=== PATIENT | female | born 1965 | race Caucasian/White ===

== ENCOUNTER 2020-02-17 07:54 | Day surgery (SDC) | payer OTHER ==
[2020-02-17] MEDS ORDERED: ACETAMINOPHEN 325 MG TABLET PO ONE (08:23)
--- NOTE | 2020-02-17 09:32 | RADIOLOGY REPORT (SQ) ---
EXAM DESCRIPTION: SHOULDER RIGHT 2 OR MORE VIEWS IMAGES COMPLETED DATE/TIME: 02/17/2020 9:23 am REASON FOR STUDY: fall, pain. COMPARISON: None. NUMBER OF VIEWS: Three views. TECHNIQUE: Internal rotation, external rotation, and Y view images acquired of the right shoulder. LIMITATIONS: None. FINDINGS: MINERALIZATION: Normal. BONES: No acute fracture. No worrisome bone lesions. JOINTS: Anterior, inferior glenohumeral dislocation. VISUALIZED LUNGS AND RIBS: No pneumothorax. No rib fracture. SOFT TISSUES: No radiopaque foreign body. OTHER: No other significant finding. IMPRESSION: Anterior, inferior glenohumeral dislocation. TECHNICAL DOCUMENTATION: JOB ID: [id number] 2010 [employer]- All Rights Reserved Reading location - IP/workstation name: [email or web address]
--- NOTE | 2020-02-17 10:22 | ER Document Report ---
ED General - General Chief Complaint: Shoulder Pain Stated Complaint: FALL/SHOULDER PAIN Primary Care Provider: ALLI CASTAÑEDA FNP-C [Primary Care Provider] - Follow up as needed Information source: Patient, Relative Notes: Patient is a 54-year-old female presenting to the emergency department chief complaint of accidental fall resulting in right shoulder pain. Patient states that she was at work and got tangled with some shrink wrap and tripped and fell landing on her right shoulder. Patient denies chest pain shortness of breath capitation's or any other complaint prior to the fall. Patient is complaining of pain to the right shoulder otherwise no other abnormal findings at this time. TRAVEL OUTSIDE OF THE [place] IN LAST 30 DAYS: No - HPI Onset: Just prior to arrival Onset/Duration: Sudden Quality of pain: Throbbing Severity: Moderate Pain Level: 3 Associated symptoms: None Exacerbated by: Movement Relieved by: Denies Similar symptoms previously: No Recently seen / treated by doctor: No - Related Data Allergies/Adverse Reactions: No Known Allergies Allergy (Verified 02/17/20 08:26) Past Medical History - General Information source: Patient - Social History Smoking Status: Unknown if Ever Smoked Chew tobacco use (# tins/day): No Frequency of alcohol use: None Drug Abuse: None Lives with: Spouse/Significant other Family History: Reviewed & Not Pertinent Patient has suicidal ideation: No Patient has homicidal ideation: No Review of Systems - Review of Systems Notes: REVIEW OF SYSTEMS: CONSTITUTIONAL : Denies fever, chills, or sweats. Denies recent illness. EENT: Denies eye, ear, throat, or mouth pain or symptoms. Denies nasal or sinus congestion. CARDIOVASCULAR: Denies chest pain. RESPIRATORY: Denies cough, cold, or chest congestion. Denies shortness of breath, difficulty breathing, or wheezing. GASTROINTESTINAL: Denies abdominal pain. Denies nausea, vomiting, or diarrhea. Denies constipation. GENITOURINARY: Denies difficulty urinating, painful urination, burning, frequency, or blood in urine. MUSCULOSKELETAL: Per HPI SKIN: Denies rash or skin lesions. HEMATOLOGIC : Denies easy bruising or bleeding. NEUROLOGICAL: Denies altered mental status or loss of consciousness. Denies headache. Denies weakness or paralysis or loss of use of either side. Denies problems with gait or speech. Denies sensory or motor loss. PSYCHIATRIC: Denies suicidal or homicidal ideations 10 Systems are negative unless otherwise specified above Physical Exam - Vital signs Vitals: Temp Pulse Resp BP Pulse Ox 98.0 F 112 H 16 156/70 H 100 02/17/20 08:01 02/17/20 08:01 02/17/20 08:01 02/17/20 08:01 02/17/20 08:01 - Notes Notes: PHYSICAL EXAMINATION: GENERAL: Well-appearing, well-nourished and in no acute distress. HEAD: Atraumatic, normocephalic. EYES: Pupils equal round and reactive to light, extraocular movements intact, sclera anicteric, conjunctiva are normal. ENT: nares patent, oropharynx clear without exudates. Moist mucous membranes. NECK: Normal range of motion, supple without lymphadenopathy, no appreciable JVD LUNGS: Lungs clear to auscultation bilaterally and equal. No wheezes rales or rhonchi. HEART: Regular rate and rhythm without murmurs ABDOMEN: Soft, nontender, normal bowel sounds. No guarding, no rebound. No masses appreciated. EXTREMITIES: Active full range of motion x3,2+ pulses x4, limitation is right shoulder demonstrates obvious deformity. Patient does have good range of motion distally and sensation is present distally capillary refill less than 3 seconds. NEUROLOGICAL: No focal neurological deficits. Moves all extremities spontaneously and on command. SKIN: Warm, Dry, and intact. Normal turgor, no rashes or lesions noted. Course - Re-evaluation Re-evalutation: 02/17/20 10:44 I did discuss with the patient and her the need for conscious sedation and relocation of her dislocation I did discuss all possible complications and she is agreeable with the procedure. 02/17/20 12:52 Multiple attempts (2) to reduce the patient's shoulder dislocation were unsuccessful. I spoke with Dr. Hendrickson, orthopedics seed cone picker and he agrees to take the patient to the OR for general anesthesia and reduction of her right- sided shoulder dislocation. Patient and are aware of the change and are agreeable with same. - Vital Signs Vital signs: Temp Pulse Resp BP Pulse Ox 98.0 F 89 18 129/71 H 100 02/17/20 08:01 02/17/20 11:00 02/17/20 12:01 02/17/20 12:00 02/17/20 12:01 Procedures - Conscious Sedation Conscious sedation Time started: 11:07 Time completed: 11:13 Consent obtained: Yes Prior complications: Procedural sedation Pt with a mild systemic disease.: P2. - ASA Classification. Airway Evaluation: Normal anatomy, Large tongue Mallampati Classification: Class 3 Used during procedure: Suction available, IV access obtained, Pulse ox on pt., surveillance system monitor on pt. Medications administered: Diprivan Reversal agents: None I personally performed/intraservice time: Sedation Complications: No Notes: Repeat procedure was performed times as follows [id number] - Joint Reduction/Fracture Care Right Shoulder Time completed: 11:43 Consent obtained: Yes Conscious sedation: Yes Pre-procedure NV exam: Yes Post-procedure NV exam: Yes Post-reduction x-ray: Joint not reduced Reduction attempts: 2 Complications: No Discharge - Discharge Clinical Impression: Shoulder dislocation Qualifiers: Encounter type: initial encounter Laterality: right Qualified Code(s): S43.004A - Unspecified dislocation of right shoulder joint, initial encounter Condition: Stable Disposition: SAME DAY SURGERY Admitting Provider: Emeka Referrals: ALLI CASTAÑEDA DIESEL MACHINIST-C [Primary Care Provider] - Follow up as needed
[2020-02-17] MEDS ORDERED: NORMAL SALINE 1000 ML 1,000 ML IV ONE (10:45)
[2020-02-17] MEDS ORDERED: PROPOFOL INJ 200 MG/20 ML VIAL IV ONE ×4 (10:46→14:40)
[2020-02-17] MEDS ORDERED: MORPHINE SULFATE 10 MG/ML INJ IV ONE ×2 (10:46→13:28)
[2020-02-17] MEDS ORDERED: ONDANSETRON HCL INJ/PF 4 MG/2 ML SDV IV ONE (10:47)
--- NOTE | 2020-02-17 13:02 | RADIOLOGY REPORT (SQ) ---
EXAM DESCRIPTION: SHOULDER RIGHT 2 OR MORE VIEWS IMAGES COMPLETED DATE/TIME: 02/17/2020 12:17 pm REASON FOR STUDY: post dislocation COMPARISON: Earlier the same day. NUMBER OF VIEWS: Two views. TECHNIQUE: AP images acquired of the right shoulder at 1100 hours and 1200 hours. LIMITATIONS: None. FINDINGS: No change in anterior glenohumeral dislocation. IMPRESSION: No change. TECHNICAL DOCUMENTATION: JOB ID: [id number] 2010 [employer]- All Rights Reserved Reading location - IP/workstation name: [email or web address]
[2020-02-17] MEDS ORDERED: KETAMINE HCL INJ 500 MG/10 ML VIAL ONE (14:39)
[2020-02-17] MEDS ORDERED: FENTANYL CITRATE INJ/PF 100 MCG/2 ML AMPUL ONE (14:39)
--- NOTE | 2020-02-17 14:53 | PDOC H&P ---
History of Present Illness Admission Date/PCP: NELSON DUKES Patient complains of: Right shoulder anterior dislocation History of Present Illness: GALI MONTEMAYOR is a 54 year old female employed at [employer]. 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 She presented to the emergency room at [facility] complaining of right shoulder pain. Imaging demonstrated an anterior shoulder dislocation. 2 separate reduction attempts were performed in the emergency department. These attempts were unsuccessful. Past Medical History Cardiac Medical History: Reports: Hyperlipidema, Hypertension Pulmonary Medical History: Denies: None, Asthma, Bronchitis, Chronic Obstructive Pulmonary Disease (COPD), Intubation, Pneumonia, Respiratory Failure, Sleep Apnea, Tuberculosis, Other EENT Medical History: Denies: None, Cataracts, Eyes, Ears, Nose, Throat, Other Neurological Medical History: Denies: None, Hemorrhagic CVA, Ischemic CVA, Migraine, Multiple Sclerosis, Seizures, Other Endocrine Medical History: Reports: Diabetes Mellitus Type 2 Renal/ Medical History: Denies: None, Chronic Kidney Disease, End Stage Renal Disease, Nephrolithiasis, Other Malignancy Medical History: Denies: None, Bone Cancer, Brain Cancer, Breast Cancer, Cervical Cancer, Colorectal Cancer, Leukemia, Liver Cancer, Lung Cancer, Lymphoma, Ovarian Cancer, Pancreatic Cancer, Renal (Kidney) Cancer, Skin Cancer, Other Psychiatric Medical History: Denies: None, Alcohol Dependency, Attention Deficit Hyperactivity Disorder, Bipolar Disorder, Dementia, Depression, General Anxiety Disorder, Personality Disorder, Post Traumatic Stress Disorder, Schizoaffective Disorder, Substance Abuse, Tobacco Dependency, Other Hematology: Denies: None, Anemia, Hemophilia, Sickle Cell Disease, Bleeding Tendencies, Heparin Induced Thrombocytopenia, Neutropenia, Other Infectious Medical History: Denies: None, Clostridium Difficile, Hepatitis B, Hepatitis C, HIV, Methicillin-Resistant Staph Aureus, Vancomycin-Resistant Enterococci, Other Past Surgical History Past Surgical History: Reports: Orthopedic Surgery Social History Lives with: Spouse/Significant other Smoking Status: Unknown if Ever Smoked Electronic Cigarette use?: No Frequency of Alcohol Use: Rare Hx Recreational Drug Use: No Hx Prescription Drug Abuse: No - Advance Directive Resuscitation Status: Full Code Family History Family History: Reviewed & Not Pertinent Parental Family History Reviewed: Yes Children Family History Reviewed: Unknown Sibling(s) Family History Reviewed.: Unknown Medication/Allergy Allergies/Adverse Reactions: No Known Allergies Allergy (Verified 02/17/20 08:26) Review of Systems ROS unobtainable: Other - As per HPI Physical Exam Vital Signs: Temp Pulse Resp BP Pulse Ox 98.0 F 89 15 125/71 99 02/17/20 08:01 02/17/20 11:00 02/17/20 14:01 02/17/20 14:00 02/17/20 14:01 Intake & Output 02/16/20 02/17/20 02/18/20 06:59 06:59 06:59 Weight 95.4 kg General appearance: PRESENT: no acute distress, well-developed, well-nourished Head exam: PRESENT: atraumatic, normocephalic Eye exam: PRESENT: conjunctiva pink, EOMI, PERRLA. ABSENT: scleral icterus Ear exam: PRESENT: normal external ear exam Mouth exam: PRESENT: moist, tongue midline Neck exam: ABSENT: carotid bruit, JVD, lymphadenopathy, thyromegaly Respiratory exam: PRESENT: clear to auscultation anand. ABSENT: rales, rhonchi, wheezes Cardiovascular exam: PRESENT: RRR. ABSENT: diastolic murmur, rubs, systolic murmur Pulses: PRESENT: normal dorsalis pedis pul Vascular exam: PRESENT: normal capillary refill Rectal exam: PRESENT: deferred Musculoskeletal exam: PRESENT: other - There is an anterior fullness to the right shoulder. There is normal motion of the elbow, wrist, and digits. 2+ radial and ulnar pulses. Sensation is normal in all nerve distributions including the axillary nerve on the lateral aspect of the shoulder. Results Impressions: Shoulder X-Ray 02/17/20 00:00 IMPRESSION: No change. Assessment & Plan - Diagnosis (1) Dislocation of shoulder, anterior, right, closed Qualifiers: Encounter type: initial encounter Qualified Code(s): S43.014A - Anterior dislocation of right humerus, initial encounter - Time Time Spent: 30 to 50 Minutes Medications reviewed and adjusted accordingly: Yes Anticipated Discharge Disposition: Home, Self Care Anticipated Discharge Timeframe: within 24 hours - Plan Summary Plan Summary: The patient has sustained a first-time, traumatic anterior shoulder dislocation. She has failed manipulative reduction in the emergency department. This was performed twice by the emergency room physician. I have recommended an additional attempt at manipulative reduction under anesthesia in the operating room using fluoroscopy. If closed reduction fails, I have then recommended open reduction with repair of structures as needed. Risk, benefits, and alternatives were discussed with the patient and her . Risks include the risk of with anesthesia, the risk of injury to nerves and vessels, the risk of persistent instability, the risk of stiffness following open reduction, and the risk of infection with open reduction. An opportunity for questions was provided. All questions were answered to their satisfaction.
--- NOTE | 2020-02-17 15:18 | Operative Report ---
Operative Report DATE OF SURGERY: 02/17/20 PREOPERATIVE DIAGNOSIS: Right anterior shoulder dislocation POSTOPERATIVE DIAGNOSIS: Right anterior shoulder dislocation OPERATION: Manipulative reduction of right shoulder dislocation under general anesthesia SURGEON: RIVERA NO ANESTHESIA: GA COMPLICATIONS: None ESTIMATED BLOOD LOSS: None INTRAOPERATIVE FINDINGS: Same PROCEDURE: Indications for procedure: The patient is a 54-year-old woman who sustained a fall onto her outstretched right hand while working earlier today at [employer]. She sustained a closed anterior dislocation of the right shoulder. Manipulative reduction was attempted twice by the emergency room physician and was unsuccessful. Description of procedure: Following the induction of a general anesthetic, the patient was positioned supine on the operating room table. All bony prominences were padded. Gentle manipulative reduction of the shoulder was performed with countertraction placed in the axilla. Reduction was visualized under live fluoroscopic guidance. Reduction was obtained quite easily with gentle manipulation. Following reduction the shoulder was taken through a full range of motion including internal and external rotation. The shoulder remained concentrically located during these maneuvers. Imaging was taken in neutral, external rotation, internal rotation, and an axillary view was also obtained. All views demonstrated concentric reduction. A sling was then placed. The patient tolerated the procedure without complication. She will be discharged to home with ibuprofen as needed for pain. She will follow-up in the office within 2 weeks. This injury did occur at work. I have discussed with the patient and her that they should contact the office so that we can assist in providing documentation for her employer as needed.
[2020-02-17] MEDS ORDERED: OXYCODONE-ACETAMINOPHEN 5-325 MG TABLET PO PRN (15:22)
[2020-02-17] MEDS ORDERED: ONDANSETRON HCL INJ/PF 4 MG/2 ML SDV IV PRN (15:22)
--- NOTE | 2020-02-17 16:19 | RADIOLOGY REPORT (SQ) ---
EXAM DESCRIPTION: SHOULDER RIGHT 2 OR MORE VIEWS; NO CHG FLUORO IMAGES COMPLETED DATE/TIME: 02/17/2020 3:45 pm REASON FOR STUDY: CLOSED REDUCTION OF RIGHT SHOULDER COMPARISON: 02/17/2020 FLUOROSCOPY TIME: 0.1 minutes 7 images saved to PACS. TECHNIQUE: Intra-operative images acquired during surgical procedure to evaluate progress. NUMBER OF IMAGES: 7 LIMITATIONS: None. FINDINGS: Intraoperative images were obtained over the course of glenohumeral dislocation reduction. Images are submitted for administrative purposes only. Please refer to the operative report for fu ll details regarding this procedure. IMPRESSION: IMAGE(S) OBTAINED DURING PROCEDURE. COMMENT: Quality ID [id number]: Final reports for procedures using fluoroscopy that document radiation exp osure indices, or exposure time and number of fluorographic images (if radiation exposure indices are not available) Please consult full operative report of the attending physician for description of the procedure. TECHNICAL DOCUMENTATION: JOB ID: [id number] 2010 [employer]- All Rights Reserved Reading location - IP/workstation name: [email or web address]
--- NOTE | 2020-02-17 16:19 | RADIOLOGY REPORT (SQ) ---
EXAM DESCRIPTION: SHOULDER RIGHT 2 OR MORE VIEWS; NO CHG FLUORO IMAGES COMPLETED DATE/TIME: 02/17/2020 3:45 pm REASON FOR STUDY: CLOSED REDUCTION OF RIGHT SHOULDER COMPARISON: 02/17/2020 FLUOROSCOPY TIME: 0.1 minutes 7 images saved to PACS. TECHNIQUE: Intra-operative images acquired during surgical procedure to evaluate progress. NUMBER OF IMAGES: 7 LIMITATIONS: None. FINDINGS: Intraoperative images were obtained over the course of glenohumeral dislocation reduction. Images are submitted for administrative purposes only. Please refer to the operative report for fu ll details regarding this procedure. IMPRESSION: IMAGE(S) OBTAINED DURING PROCEDURE. COMMENT: Quality ID [id number]: Final reports for procedures using fluoroscopy that document radiation exp osure indices, or exposure time and number of fluorographic images (if radiation exposure indices are not available) Please consult full operative report of the attending physician for description of the procedure. TECHNICAL DOCUMENTATION: JOB ID: [id number] 2010 [employer]- All Rights Reserved Reading location - IP/workstation name: [email or web address]
[2020-02-17 17:20] VITALS: BP 139/69
== END 2020-02-17 16:05 | disposition home or self-care (01) ==
LOC: ER 07:54 → OROUT 14:26
PROVIDERS: ATTEND Orthopaedic Surgery
DX: S43.014A Anterior dislocation of right humerus, initial encounter (principal); W19.XXXA Unspecified fall, initial encounter; Y92.69 Other specified industrial and construction area as the place of occurrence of the external cause; Y99.0 Civilian activity done for income or pay; E78.5 Hyperlipidemia, unspecified; I10 Essential (primary) hypertension; E11.9 Type 2 diabetes mellitus without complications
CPT/HCPCS: 73030; 99140; 01620; 23655; J3010; J2270; J2405; J7030; J2704; J3490